=== PATIENT | male | born 1995 | race Two or more races ===

== ENCOUNTER 2019-03-15 22:14 | Emergency (ER) | payer OTHER ==
[~2019-03-15] VITALS: Ht 177.8 cm; Wt 94.3 kg
[2019-03-16] MEDS ORDERED: VALTREX1000 MG PO (01:18)
== END 2019-03-16 01:26 | disposition home or self-care (01) ==
LOC: ER
DX: B00.89 Other herpesviral infection (principal)

== ENCOUNTER 2021-01-06 07:37 | Outpatient (CLI) | payer OTHER ==
[~2021-01-06 07:37] MED LIST: VALTREX1000 MG PO
== END 2021-01-06 07:40 | disposition home or self-care (01) ==
LOC: MRI 07:37
DX: N50.89 Other specified disorders of the male genital organs (principal); N50.82 Scrotal pain; N41.1 Chronic prostatitis
CPT/HCPCS: 72197

== ENCOUNTER 2021-01-06 08:15 | Outpatient (CLI) | payer OTHER | END 2021-01-06 08:17 | disposition home or self-care (01) | LOC: LAB 08:15 | DX: N50.89 Other specified disorders of the male genital organs (principal); N50.82 Scrotal pain; N41.1 Chronic prostatitis ==